=== PATIENT | female | born 1970 | race Asian ===

== ENCOUNTER 2018-01-12 16:30 | Emergency (ER) | payer OTHER ==
[~2018-01-12] VITALS: Ht 154.9 cm; Wt 99.8 kg
[2018-01-12 19:54] VITALS: BP 160/88; TEMP 08.1
== END 2018-01-12 20:01 | disposition home or self-care (01) ==
LOC: ED 16:30
DX: M25.78 Osteophyte, vertebrae (principal); M54.12 Radiculopathy, cervical region; X50.0XXA Overexertion from strenuous movement or load, initial encounter
CPT/HCPCS: 99283; J2270; J2550

== ENCOUNTER 2021-05-19 09:11 | Outpatient (CLI) | payer OTHER ==
[~2021-05-19 09:11] MED LIST: ACAI BERRY500 MG PO; HYDR25TA60 PO; HYDRALAZINE25 MG PO; LEVO-T175 MCG PO
== END 2021-05-19 20:44 | disposition home or self-care (01) ==
LOC: US 09:11
PROVIDERS: ATTEND Nurse Practitioner Family
DX: R10.9 Unspecified abdominal pain (principal); R11.0 Nausea